=== PATIENT | female | born 2000 | race African-American/Black ===

== ENCOUNTER 2019-01-05 16:52 | Emergency (ER) | payer SELFPAY ==
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
--- OUTSIDE RECORDS SUMMARY | 2019-01-05 16:55 | XMS REPORT ---
:2000 [facility] Address [address] [address] [place] [address] Care Team Providers Name Role Phone UNKNOWN, REFFERING Primary Care Provider Unavailable Problems This patient has no known problems. Allergies, Adverse Reactions, Alerts This patient has no known allergies or adverse reactions. Medications This patient has no known medications. Encounters Start End Encounter Admission Attending Care Care Encounter Date/Time Date/Time Type Type Clinicians Facility Department ID 2017-08-23 2017-08-23 Emergency E [facility] MED [id number] 03:43:00 03:43:00 Results Test Description Test Time Test Comments Text Results Atomic Results Result Comments XR SPINE, THORACIC 2017-08-23 04:42:25 XR SPINE, THORACIC 2VLocation: [id number] 2V hours services provided 08/23/2017 4:42 AMIndication:PainComparison:None availableFindings:Normal thoracic kyphosis and vertebral body alignment.Intervertebral disc spaces and vertebral body heights appear normal. Noacute fracture or dislocation is seen.Impression: No acute fracture or dislocation. CT HEAD OR BRAIN WO 2017-08-23 04:39:21 CT HEAD OR BRAIN WO CONTRAST CONTRASTLocation:[id number] hours services provided 08/23/2017 4:39 AMIndication:TraumaComparison:None availableTechnique: Axial CT images were acquired through the brain withoutcontrast. Sagittal and coronal reformatted images are provided forinterpretation. All CT scans at this facility use dose modulation,iterative reconstruction, and/or weight-based dosing when appropriate toreduce radiation dose to as low as recently possible.Findings:No acute intracranial hemorrhage, mass or area of mass effectis noted.The ventricles and sulci are normal. The extra-axial spaces areclear. Limited views of the paranasal sinuses, mastoids and orbits arenormal.Impression: No acute intracranial abnormality.
--- NOTE | 2019-01-05 18:45 | ER ---
Nurse's Notes [facility] Name: Winnie Nguyen Age: 18 yrs Sex: Female : 2000 Arrival Date: 01/05/2019 Time: 16:56 Bed 17 Private MD: Diagnosis: Streptococcal tonsillitis Presentation: 01/05 16:58 Presenting complaint: Patient states: Sore throat, fever, body aches for 1 day. aj Transition of care: patient was not received from another setting of care. Onset of symptoms was January 04, 2019. Risk Assessment: Do you want to hurt yourself or someone else? Patient reports no desire to harm self or others. Initial Sepsis Screen: Does the patient meet any 2 criteria? No. Patient's initial sepsis screen is negative. Does the patient have a suspected source of infection? No. Patient's initial sepsis screen is negative. Care prior to arrival: None. 16:58 Method Of Arrival: Ambulatory aj 16:58 Acuity: SEVEN 4 aj Triage Assessment: 16:59 General: Appears in no apparent distress. comfortable, Behavior is calm, cooperative, aj appropriate for age. Pain: Complains of pain in left aspect of posterior pharynx and right aspect of posterior pharynx. EENT: Reports pain when swallowing. Neuro: Level of Consciousness is awake, alert, obeys commands, Oriented to person, place, time, situation, Appropriate for age. Respiratory: Airway is patent Respiratory effort is even, unlabored, Respiratory pattern is regular, symmetrical. Derm: Skin is intact, is healthy with good turgor, Skin is pink, warm \T\ dry. normal. 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 - Social history:: Smoking status: Patient/guardian denies using tobacco. - Ebola Screening: : No symptoms or risks identified at this time. - Family history:: not pertinent. - Hospitalizations: : No recent hospitalization is reported. Screenin:30 Abuse screen: Denies threats or abuse. Nutritional screening: No deficits noted. em Tuberculosis screening: No symptoms or risk factors identified. Fall Risk None identified. Assessment: 17:30 General: Appears in no apparent distress. comfortable, Behavior is calm, cooperative, em Smells of Denies fever. Pain: Complains of pain in right aspect of posterior pharynx and left aspect of posterior pharynx. Neuro: Level of Consciousness is awake, alert, obeys commands, Oriented to person, place, time, situation. Cardiovascular: Capillary refill < 3 seconds Patient's skin is warm and dry. Respiratory: Airway is patent Respiratory effort is even, unlabored, Respiratory pattern is regular, symmetrical, Breath sounds are clear bilaterally. GI: Abdomen is flat, Patient currently denies nausea, vomiting. EENT: Throat is reddened bilaterally. Derm: Skin is intact, is healthy with good turgor, Skin is pink, warm \T\ dry. Musculoskeletal: Capillary refill < 3 seconds, Range of motion: intact in all extremities. Vital Signs: 16:59 BP 110 / 67; Pulse 96; Resp 16; Temp 98.4; Pulse Ox 100% on R/A; Weight 58.97 kg; aj Height 5 ft. 4 in. (162.56 cm); 16:59 Body Mass Index 22.31 (58.97 kg, 162.56 cm) aj ED Course: 16:56 Patient arrived in ED. mr 16:59 Triage completed. aj 16:59 Arm band placed on left wrist. Patient placed in an exam room. aj 17:01 Leonel Roach MD is Attending Physician. rn 17:25 Devendra Em LVN is Primary Nurse. em 17:29 Initial lab(s) drawn, by vt, sent to lab. Flu and/or RSV swab sent to lab. Strep swab iw sent to lab. 17:30 Patient has correct armband on for positive identification. Bed in low position. Call em light in reach. Adult w/ patient. 18:49 No provider procedures requiring assistance completed. Patient did not have IV access em during this emergency room visit. Administered Medications: No medications were administered Outcome: 18:44 Discharge ordered by MD. rn 18:49 Discharged to home ambulatory, with family. em 18:49 Condition: good 18:49 Discharge instructions given to patient, family, Instructed on discharge instructions, follow up and referral plans. medication usage, Demonstrated understanding of instructions, follow-up care, medications, Prescriptions given X 1. 18:50 Patient left the ED. em Signatures: Tammie Nuñez RN Lorena Vazquez mr Devendra Em LVN LVN Yanci Ivey, RN RN Leonel Nino MD MD rn
--- NOTE | 2019-01-05 18:45 | EDPHYS ---
Physician Documentation [facility] Name: Winnie Nguyen Age: 18 yrs Sex: Female : 2000 Arrival Date: 01/05/2019 Time: 16:56 Bed 17 Private MD: ED Physician Leonel Roach HPI: 01/05 17:29 This 18 yrs old Black Female presents to ER via Ambulatory with complaints of Sore rn Throat. 17:29 The patient presents with sore throat. The patient describes throat pain as burning, rn raw. Onset: The symptoms/episode began/occurred yesterday. Severity of symptoms: At their worst the symptoms were mild, in the emergency department the symptoms are unchanged. Modifying factors: The symptoms are alleviated by nothing, the symptoms are aggravated by swallowing. The patient has not experienced similar symptoms in the past. 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 . 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 - Social history:: Smoking status: Patient/guardian denies using tobacco. - Ebola Screening: : No symptoms or risks identified at this time. - Family history:: not pertinent. - Hospitalizations: : No recent hospitalization is reported. ROS: 17:29 Constitutional: + fever to 101, + chills Eyes: Negative for injury, pain, redness, and radiology rn, ENT: + sore throat Neck: Negative for injury Cardiovascular: Negative for chest pain, palpitations, and edema, Respiratory: Negative for shortness of breath, cough, wheezing, and pleuritic chest pain, Abdomen/GI: Negative for abdominal pain, nausea, vomiting, diarrhea, and constipation, Back: Negative for injury and pain, : Negative for injury, bleeding, discharge, and swelling, MS/Extremity: Negative for injury and deformity, Skin: Negative for injury, rash, and discoloration, Neuro: + headache Exam: 17:29 Constitutional: This is a well developed, well nourished patient who is awake, alert, rn and in no acute distress. Head/Face: Normocephalic, atraumatic. Eyes: Pupils equal round and reactive to light, extra-ocular motions intact. Lids and lashes normal. Conjunctiva and sclera are non-icteric and not injected. Cornea within normal limits. Periorbital areas with no swelling, redness, or edema. ENT: + tonsillar hypertrophy with exudate, no stridor, normal midline uvula Neck: Trachea midline, + mildly tender right cervical LAD, no meningismus, supple, FROM Respiratory: No increased work of breathing, no retractions or nasal flaring. MS/ Extremity: Pulses equal, no cyanosis. Neuro: Awake and alert, GCS 15, oriented to person, place, time, and situation. Cranial nerves II-XII grossly intact. Motor strength 5/5 in all extremities. Sensory grossly intact. Cerebellar exam normal. Normal gait. Vital Signs: 16:59 BP 110 / 67; Pulse 96; Resp 16; Temp 98.4; Pulse Ox 100% on R/A; Weight 58.97 kg; aj Height 5 ft. 4 in. (162.56 cm); 16:59 Body Mass Index 22.31 (58.97 kg, 162.56 cm) aj MDM: 17:01 Patient medically screened. rn 18:37 Differential diagnosis: group A strep tonsillitis, influenza, mononucleosis. Data rn reviewed: vital signs, nurses notes, lab test result(s), and as a result, I will discharge patient. Counseling: I had a detailed discussion with the patient and/or guardian regarding: the historical points, exam findings, and any diagnostic results supporting the discharge/admit diagnosis, lab results, the need for outpatient follow up, to return to the emergency department if symptoms worsen or persist or if there are any questions or concerns that arise at home. Special discussion: I discussed with the patient/guardian in detail that at this point there is no indication for admission to the hospital. It is understood, however, that if the symptoms persist or worsen the patient needs to return immediately for re-evaluation. 18:44 ED course: Offered patient bicillin, refuses, wants oral abx.. rn 01/05 17:09 Order name: Strep; Complete Time: 18:37 rn 01/05 17:09 Order name: Flu; Complete Time: 18:37 rn 01/05 17:09 Order name: [place] Screen Profile; Complete Time: 18:37 rn Administered Medications: No medications were administered Disposition: 01/05/19 18:44 Discharged to Home. Impression: Streptococcal tonsillitis. - Condition is Stable. - Discharge Instructions: Strep Throat. - Prescriptions for Augmentin 875- 125 mg Oral Tablet - take 1 tablet by ORAL route every 12 hours for 10 days; 20 tablet. - Medication Reconciliation Form, Thank You Letter, Antibiotic Education, Prescription Opioid Use form. - Follow up: Private Physician; When: As needed; Reason: Recheck today's complaints, Re-evaluation by your physician. - Problem is new. - Symptoms have improved. Signatures: Dispatcher [employer] Tammie Brunner RN RN Devendra Siegel, MATRIX BATH ATTENDANT MATRIX BATH ATTENDANT em Leonel Roach MD MD airborne and air delivery specialist: (The following items were deleted from the chart) 18:50 18:44 01/05/2019 18:44 Discharged to Home. Impression: Streptococcal tonsillitis. em Condition is Stable. Forms are Medication Reconciliation Form, Thank You Letter, Antibiotic Education, Prescription Opioid Use. Follow up: Private Physician; When: As needed; Reason: Recheck today's complaints, Re-evaluation by your physician. Problem is new. Symptoms have improved. rn
== END 2019-01-05 18:50 | disposition home or self-care (01) ==
LOC: ER 16:52
DX: J03.00 Acute streptococcal tonsillitis, unspecified (principal)
CPT/HCPCS: 36415; 86308; 87081; 87804; 99283

== ENCOUNTER 2019-05-24 11:10 | Emergency (ER) | payer BC, SELFPAY ==
--- OUTSIDE RECORDS SUMMARY | 2019-05-24 11:12 | XMS REPORT ---
:2000 [facility] Address [address] [place] [address] Care Team Providers Name Role Phone UNKNOWN, REFFERING Primary Care Provider Unavailable Problems This patient has no known problems. Allergies, Adverse Reactions, Alerts This patient has no known allergies or adverse reactions. Medications This patient has no known medications. Encounters Start End Encounter Admission Attending Care Care Encounter Date/Time Date/Time Type Type Clinicians Facility Department ID 2017-08-23 2017-08-23 Emergency E [facility] MED [id number] 03:43:00 03:43:00 Results Test Description Test Time Test Comments Text Results Atomic Results Result Comments XR SPINE, THORACIC 2017-08-23 04:42:25 XR SPINE, THORACIC 2VLocation: [id number] 2V hours services provided 08/23/2017 4:42 AMIndication:PainComparison:None availableFindings:Normal thoracic kyphosis and vertebral body alignment.Intervertebral disc spaces and vertebral body heights appear normal. Noacute fracture or dislocation is seen.Impression: No acute fracture or dislocation. CT HEAD OR BRAIN WO 2017-08-23 04:39:21 CT HEAD OR BRAIN WO CONTRAST CONTRASTLocation:[id number] hours services provided 08/23/2017 4:39 AMIndication:TraumaComparison:None availableTechnique: [...]
[2019-05-24 12:34] LABS: Absolute Lymphocytes (CBC) 2.2 K/uL (0.7-4.9); Basophils % 0.4 % (0-1.3); Hematocrit 37.4 % (36.0-45.0); Lymphocytes % 36.7 % (15.3-44.8); MPV 8.6 fL (7.6-11.3); RBC Red Blood Cell Count 3.94 M/uL (3.86-4.86)
[2019-05-24 12:34] LABS: Urine Blood NEGATIVE (NEG); Urine Glucose NEGATIVE (NEG); Urine Protein TRACE (NEG); Urine pH 6.5 (5.0-7.0)
[2019-05-24 12:52] LABS: ALT/SGPT 21 U/L (12-78); AST/SGOT 14 U/L (15-37); Albumin 3.6 g/dL (3.4-5.0); Alkaline Phosphatase 83 U/L (45-117); BUN Blood Urea Nitrogen 14 mg/dL (7-18); Bicarbonate 28 mmol/L (21-32); Bilirubin Direct 0.2 mg/dL (0-0.2); Bilirubin Total 0.7 mg/dL (0.2-1.0); Glucose Level 91 mg/dL (74-106); Lipase 118 U/L (73-393); Potassium 3.6 mmol/L (3.5-5.1); Protein, Total 7.4 g/dL (6.4-8.2); Sodium Level 141 mmol/L (136-145)
--- NOTE | 2019-05-24 14:28 | RAD REPORT ---
EXAM DESCRIPTION: US - Pelvis Complete - 05/24/2019 2:16 pm COMPARISON: None. TECHNIQUE: Transabdominal pelvic sonography was performed. Patient declined endovaginal examination. FINDINGS: Normal sized, retroflexed uterus is present. No myometrial mass identifiable. No focal end ometrial mass or polyp identifiable. Endometrial stripe is 3-4 mm. In the left adnexa a 4.3 centimeter heterogeneous complex left ovarian or left paraovarian cystic or hypoechoic mass is present. Doppler evaluation shows blood flow in the adjacent ovarian stroma. This mass is partially anechoic. This is believed to be a large cyst with cellular or hemorrhagic debris w ithin the lumen. Endometrioma is a possibility but considered lesser in likelihood. Right ovary was obscured by bowel. No right adnexal mass. IMPRESSION: Approximately 4.3 centimeter left ovarian or paraovarian cystic mass. This is believed t o be a complex or hemorrhagic cyst. Endometrioma is a lesser consideration. No solid mass of the left ovary seen. Nonvisualization of the right ovary due to bowel gas. No right adnexal finding. No uterine abnormality.
--- NOTE | 2019-05-24 14:41 | EDPHYS ---
Physician Documentation [facility] Name: Winnie Nguyen Age: 18 yrs Sex: Female : 2000 Arrival Date: 05/24/2019 Time: 11:14 Bed 17 Private MD: ED Physician Leonel Roach HPI: 05/24 12:12 This 18 yrs old Black Female presents to ER via Ambulatory with complaints of Abdominal jmm Pain. 12:12 The patient presents with abdominal pain in the lower abdomen. Onset: The jmm symptoms/episode began/occurred acutely, 2 week(s) ago. The symptoms radiate to Associated signs and symptoms: Pertinent negatives: nausea, vomiting, and diarrhea, nausea and vomiting, dysuria, fever. The symptoms are described as achy. Modifying factors: The symptoms are alleviated by nothing, the symptoms are aggravated by intercourse. 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 - Social history:: Smoking status: Patient/guardian denies using tobacco. - Ebola Screening: : Patient negative for fever greater than or equal to 101.5 degrees Fahrenheit, and additional compatible Ebola Virus Disease symptoms Patient denies exposure to infectious person Patient denies travel to an Ebola-affected area in the 21 days before illness onset No symptoms or risks identified at this time. ROS: 12:12 Constitutional: Negative for fever, chills, and weight loss, Cardiovascular: Negative jmm for chest pain, palpitations, and edema, Respiratory: Negative for shortness of breath, cough, wheezing, and pleuritic chest pain. 12:12 Abdomen/GI: Positive for abdominal pain. 12:12 : Positive for pelvic pain. 12:12 All other systems are negative. Exam: 12:12 Constitutional: This is a well developed, well nourished patient who is awake, alert, jmm and in no acute distress. Head/Face: atraumatic. Eyes: EOMI, no conjunctival erythema appreciated ENT: Moist Mucus Membranes Neck: Trachea midline, Supple Chest/axilla: Normal chest wall appearance and motion. Cardiovascular: Regular rate and rhythm. No edema appreciated Respiratory: Normal respirations, no respiratory distress appreciated 12:12 Abdomen/GI: Inspection: abdomen appears normal, Bowel sounds: normal, Palpation: soft, mild abdominal tenderness, in the suprapubic area. 12:12 Back: CVA tenderness, is absent. 12:12 Musculoskeletal/extremity: ROM: intact in all extremities. 12:12 Skin: Appearance: Color: normal in color. 12:12 Neuro: Orientation: is normal, Mentation: is normal, Memory: is normal. 12:12 Psych: Behavior/mood is pleasant, cooperative. Vital Signs: 11:36 BP 128 / 89; Pulse 67; Resp 16; Temp 98.7; Pulse Ox 100% on R/A; Weight 61.23 kg; iw Height 5 ft. 5 in. (165.10 cm); Pain 5/10; 12:52 BP 118 / 88; Pulse 76; Resp 16; Temp 98.1(O); Pulse Ox 100% on R/A; mh5 13:49 BP 104 / 83; Pulse 64; Resp 16; Temp 98.5(O); Pulse Ox 100% on R/A; mh5 11:36 Body Mass Index 22.46 (61.23 kg, 165.10 cm) iw MDM: 12:06 Patient medically screened. [facility] 14:38 Data reviewed: vital signs, nurses notes. Counseling: I had a detailed discussion with luana the patient and/or guardian regarding: the historical points, exam findings, and any diagnostic results supporting the discharge/admit diagnosis, lab results, radiology results, the need for outpatient follow up, to return to the emergency department if symptoms worsen or persist or if there are any questions or concerns that arise at home. ED course: Patient is alert and non toxic in appearance in the ED. Patient advised to follow up with ob for reevaluation. Patient otherwise given strict return precautions. patient understood and agrees with the plan of care. . 05/24 12:11 Order name: Basic Metabolic Panel; Complete Time: 12:58 [facility] 05/24 12:11 Order name: CBC with Diff; Complete Time: 12:37 [facility] 05/24 12:11 Order name: Creatinine for Radiology; Complete Time: 12:51 [facility] 05/24 12:11 Order name: Hepatic Function; Complete Time: 12:58 [facility] 05/24 12:11 Order name: Lipase; Complete Time: 12:58 [facility] 05/24 12:11 Order name: IV Saline Lock; Complete Time: 12:38 [facility] 05/24 12:11 Order name: Labs collected and sent; Complete Time: 12:38 [facility] 05/24 12:11 Order name: Urine Dipstick-Ancillary (obtain specimen); Complete Time: 12:38 [facility] 05/24 12:11 Order name: Urine Test (obtain specimen); Complete Time: 12:38 [facility] 05/24 12:16 Order name: Urine Dipstick--Ancillary (enter results); Complete Time: 12:37 05/24 12:16 Order name: Urine --Ancillary (enter results); Complete Time: 12:37 05/24 13:34 Order name: US Pelvis Complete; Complete Time: 14:33 [facility] Administered Medications: No medications were administered Disposition: 15:39 Co-signature as Attending Physician, Leonel Roach MD. rn Disposition: 05/24/19 14:40 Discharged to Home. Impression: Unspecified ovarian cysts. - Condition is Stable. - Discharge Instructions: Ovarian Cyst. - Prescriptions for Keflex 500 mg Oral Capsule - take 1 capsule by ORAL route every 12 hours for 10 days; 20 capsule. Ultracet 37.5- 325 mg Oral Tablet - take 1 tablet by ORAL route every 6 hours - for up to 5 days; do not exceed 8 tablets per day.; 20 tablet. - Medication Reconciliation Form, Thank You Letter, Antibiotic Education, Prescription Opioid Use, Work release form form. - Follow up: Private Physician; When: 2 - 3 days; Reason: Recheck today's complaints, Continuance of care, Re-evaluation by your physician. Signatures: Dispatcher [employer] EDMS Jace Durant PA PA Yanci Rios RN RN Leonel Nino MD MD environmental engineering intern: (The following items were deleted from the chart) 13:51 12:11 Pelvic Exam Setup ordered. [facility] em 15:11 14:40 05/24/2019 14:40 Discharged to Home. Impression: Unspecified ovarian cysts. iw Condition is Stable. Forms are Medication Reconciliation Form, Thank You Letter, Antibiotic Education, Prescription Opioid Use. Follow up: Private Physician; When: 2 - 3 days; Reason: Recheck today's complaints, Continuance of care, Re-evaluation by your physician. luana
--- NOTE | 2019-05-24 14:41 | ER ---
Nurse's Notes [facility] Name: Winnie Nguyen Age: 18 yrs Sex: Female : 2000 Arrival Date: 05/24/2019 Time: 11:14 Bed 17 Private MD: Diagnosis: Unspecified ovarian cysts Presentation: 05/24 11:35 Presenting complaint: Patient states: abd pain X 2 weeks, radiates from back to iw stomach, lost appetite, denies n/v/d, denies urinary s/s. Transition of care: patient was not received from another setting of care. Onset of symptoms was May 05, 2019. Risk Assessment: Do you want to hurt yourself or someone else? Patient reports no desire to harm self or others. Initial Sepsis Screen: Does the patient meet any 2 criteria? No. Patient's initial sepsis screen is negative. Does the patient have a suspected source of infection? No. Patient's initial sepsis screen is negative. Care prior to arrival: None. 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 - Social history:: Smoking status: Patient/guardian denies using tobacco. - Ebola Screening: : Patient negative for fever greater than or equal to 101.5 degrees Fahrenheit, and additional compatible Ebola Virus Disease symptoms Patient denies exposure to infectious person Patient denies travel to an Ebola-affected area in the 21 days before illness onset No symptoms or risks identified at this time. Screenin:20 Abuse screen: Denies threats or abuse. Nutritional screening: No deficits noted. em Tuberculosis screening: No symptoms or risk factors identified. Fall Risk None identified. Assessment: 12:00 General: Appears in no apparent distress. comfortable, Behavior is calm, cooperative, em Denies fever. Pain: Complains of pain in suprapubic area Pain radiates to back Pain currently is 5 out of 10 on a pain scale. Neuro: Level of Consciousness is awake, alert, obeys commands, Oriented to person, place, time, situation, Appropriate for age. Cardiovascular: Capillary refill < 3 seconds Patient's skin is warm and dry. Respiratory: Airway is patent Respiratory effort is even, unlabored, Respiratory pattern is regular, symmetrical. GI: Abdomen is flat, Bowel sounds present X 4 quads. Abd is soft and non tender X 4 quads. Patient currently denies diarrhea, nausea, vomiting. : Denies burning with urination. Derm: Skin is intact, is healthy with good turgor, Skin is pink, warm \T\ dry. Musculoskeletal: Capillary refill < 3 seconds, Range of motion: intact in all extremities. 13:00 Reassessment: Patient appears in no apparent distress at this time. Patient and/or em family updated on plan of care and expected duration. Pain level reassessed. Patient is alert, oriented x 3, equal unlabored respirations, skin warm/dry/pink. 13:42 Reassessment: refused pelvic exam and US, provider notified. em 14:06 Reassessment: US at bedside. em Vital Signs: 11:36 BP 128 / 89; Pulse 67; Resp 16; Temp 98.7; Pulse Ox 100% on R/A; Weight 61.23 kg; iw Height 5 ft. 5 in. (165.10 cm); Pain 5/10; 12:52 BP 118 / 88; Pulse 76; Resp 16; Temp 98.1(O); Pulse Ox 100% on R/A; mh5 13:49 BP 104 / 83; Pulse 64; Resp 16; Temp 98.5(O); Pulse Ox 100% on R/A; mh5 11:36 Body Mass Index 22.46 (61.23 kg, 165.10 cm) iw ED Course: 11:14 Patient arrived in ED. mr 11:20 Patient has correct armband on for positive identification. Bed in low position. Call em light in reach. Side rails up X2. Adult w/ patient. 11:36 Triage completed. iw 11:36 Arm band placed on. iw 11:37 Jace Durant PA is PHCP. [facility] 11:37 Leonel Roach MD is Attending Physician. [facility] 11:38 Devendra Em LVN is Primary Nurse. em 12:00 Urine collected: clean catch specimen, clear. mh5 14:17 US Pelvis Complete In Process Unspecified. EDMS 15:08 No provider procedures requiring assistance completed. IV discontinued, intact, em bleeding controlled, No redness/swelling at site. Pressure dressing applied. Administered Medications: No medications were administered Outcome: 14:40 Discharge ordered by . danielm 15:08 Discharged to home ambulatory. em 15:08 Condition: good 15:08 Discharge instructions given to patient, Instructed on discharge instructions, follow up and referral plans. medication usage, Demonstrated understanding of instructions, follow-up care, medications, Prescriptions given X 2. 15:11 Patient left the ED. iw Signatures: Dispatcher [employer] EDMS Jace Durant PA PA jmm Rivera, Mary mr Devendra Em, COMPUTER CONSULTANT COMPUTER CONSULTANT em Yanci Cooper, ANA LAURA RN iw Kristen Muhammad [facility] Corrections: (The following items were deleted from the chart) 13:50 12:52 BP 118 / 88; Pulse 76bpm; Resp 16bpm; Pulse Ox 100% RA; Temp 68.1F Oral; mh5 mh5
[2019-05-24 15:24] VITALS: O2SAT 100
[2019-05-24 15:26] VITALS: BP 104/83; TEMP 98.5
== END 2019-05-24 15:11 | disposition home or self-care (01) ==
LOC: ER 11:10
DX: N83.202 Unspecified ovarian cyst, left side (principal)
CPT/HCPCS: 36415; 76856; 80048; 80076; 81003; 81025; 83690; 85025; 99283

== ENCOUNTER 2019-06-02 19:41 | Emergency (ER) | payer BC ==
--- OUTSIDE RECORDS SUMMARY | 2019-06-02 19:43 | XMS REPORT ---
:2000 [facility] Address [address] [place] [address] Care Team Providers Name Role Phone UNKNOWN, REFFERING Primary Care Provider Unavailable Problems This patient has no known problems. Allergies, Adverse Reactions, Alerts This patient has no known allergies or adverse reactions. Medications This patient has no known medications. Encounters Start End Encounter Admission Attending Care Care Encounter Date/Time Date/Time Type Type Clinicians Facility Department ID 2019-05-29 2019-05-29 Emergency E [id number] 06:03:00 06:03:00 2017-08-23 2017-08-23 Emergency E [facility] MED [id number] 03:43:00 03:43:00 Results Test Description Test Time Test Comments Text Results Atomic Results Result Comments XR SPINE, THORACIC 2017-08-23 04:42:25 XR SPINE, THORACIC 2VLocation: [id number] 2V hours services provided 08/23/2017 4:42 AMIndication:PainComparison:None availableFindings:Normal thoracic kyphosis and vertebral body alignment.Intervertebral disc spaces and vertebral body heights appear normal. Noacute fracture or dislocation is seen.Impression: No acute fracture or dislocation. CT HEAD OR BRAIN WO 2017-08-23 04:39:21 CT HEAD OR BRAIN WO CONTRAST CONTRASTLocation:[id number] hours services provided 08/23/2017 4:39 AMIndication:TraumaComparison:None availableTechnique: [...]
[2019-06-02 20:35] LABS: Absolute Lymphocytes (CBC) 2.4 K/uL (0.7-4.9); Basophils % 0.4 % (0-1.3); Hematocrit 34.8 % (36.0-45.0); Lymphocytes % 34.2 % (15.3-44.8); MPV 8.7 fL (7.6-11.3); RBC Red Blood Cell Count 3.65 M/uL (3.86-4.86)
[2019-06-02 20:49] LABS: BUN Blood Urea Nitrogen 15 mg/dL (7-18); Bicarbonate 29 mmol/L (21-32); Glucose Level 85 mg/dL (74-106); Potassium 3.6 mmol/L (3.5-5.1); Sodium Level 142 mmol/L (136-145)
[2019-06-02 22:03] LABS: Urine Blood NEGATIVE (NEG); Urine Glucose NEGATIVE (NEG); Urine Protein NEGATIVE (NEG); Urine pH 7.5 (5.0-7.0)
--- NOTE | 2019-06-02 22:15 | ER ---
Nurse's Notes 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 Transition of care: patient was not received from another setting of care. Onset of symptoms was June 01, 2019. Risk Assessment: Do you want to hurt yourself or someone else? Patient reports no desire to harm self or others. Initial Sepsis Screen: Does the patient meet any 2 criteria? No. Patient's initial sepsis screen is negative. Does the patient have a suspected source of infection? No. Patient's initial sepsis screen is negative. Care prior to arrival: None. 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 - Social history:: Smoking status: Patient/guardian denies using tobacco. - Ebola Screening: : No symptoms or risks identified at this time. Screenin:14 Abuse screen: Denies threats or abuse. Nutritional screening: No deficits noted. ea Tuberculosis screening: No symptoms or risk factors identified. Fall Risk None identified. Assessment: 20:14 General: Appears in no apparent distress. Behavior is calm, cooperative, appropriate ea for age. Pain: Complains of pain in pelvis. Neuro: Level of Consciousness is awake, alert, obeys commands, Oriented to person, place, time, situation. Cardiovascular: Patient's skin is warm and dry. Respiratory: Airway is patent Respiratory effort is even, unlabored, Respiratory pattern is regular, symmetrical. Derm: Skin is pink, warm \T\ dry. Musculoskeletal: Circulation, motion, and sensation intact. 21:50 Reassessment: Patient and/or family updated on plan of care and expected duration. Pain ea level reassessed. Patient is alert, oriented x 3, equal unlabored respirations, skin warm/dry/pink. 22:31 Reassessment: Patient and/or family updated on plan of care and expected duration. Pain ea level reassessed. Patient is alert, oriented x 3, equal unlabored respirations, skin warm/dry/pink. Discharge instruction given to patient, verbalized the understanding of instruction . Pt left ED ambulatory tolerating well. Vital Signs: 20:00 BP 111 / 78; Pulse 73; Resp 14 S; Temp 98.3(O); Pulse Ox 99% on R/A; Weight 61.23 kg bb (R); Height 5 ft. 5 in. (165.10 cm) (R); Pain 6/10; 22:00 BP 120 / 68; Pulse 70; Resp 18; Pulse Ox 100% on R/A; ea 20:00 Body Mass Index 22.46 (61.23 kg, 165.10 cm) bb ED Course: 19:44 Patient arrived in ED. ds1 19:46 Nazanin Ramsey FNP-C is PHCP. kb 19:46 Elijah Calderón MD is Attending Physician. kb 20:00 Triage completed. bb 20:00 Arm band placed on Patient placed in an exam room, on a stretcher, on pulse oximetry. bb 20:13 Cyn Bustillos, RN is Primary Nurse. ea 20:14 Patient has correct armband on for positive identification. Bed in low position. Call ea light in reach. 20:33 Initial lab(s) drawn, by me. Missed attempt(s): 20 gauge in right antecubital area. mt 21:29 US Pelvis Complete In Process Unspecified. EDMS 21:43 Ultrasound completed. Patient tolerated well. Notified DEPARTMENT OF NATURAL RESOURCES OFFICER/PA . sg3 22:30 No provider procedures requiring assistance completed. Patient did not have IV access ea during this emergency room visit. Administered Medications: 22:19 CANCELLED (Patient Refused): TORadol - Ketorolac 15 mg IVP once kb Outcome: 22:14 Discharge ordered by . kb 22:30 Discharged to home ambulatory. ea 22:30 Condition: stable 22:30 Discharge instructions given to patient, Instructed on discharge instructions, follow up and referral plans. medication usage, Demonstrated understanding of instructions, follow-up care, medications, Prescriptions given X 1. 22:32 Patient left the ED. ea Signatures: Dispatcher [employer] EDNazanin Keyes, RAMONA-C ENVELOPE SEALER OPERATOR-Nimco Islas ds1 Bia Doshi, RN Tammy Mccormack mt, Elena, RN RN ea Godinez, Yue 3
--- NOTE | 2019-06-02 22:16 | EDPHYS ---
Physician Documentation [facility] Name: Winnie Nguyen Age: 18 yrs Sex: Female : 2000 Arrival Date: 06/02/2019 Time: 19:44 Bed 16 Private MD: ED Physician Elijah Calderón HPI: 06/02 20:19 This 18 yrs old Black Female presents to ER via Ambulatory with complaints of Pelvic kb Pain. 20:20 The patient presents with pelvic pain, that is located in/on the left lower quadrant kb and right lower quadrant. Onset: The symptoms/episode began/occurred yesterday. Modifying factors: The symptoms are alleviated by nothing, the symptoms are aggravated by pressure. Associated signs and symptoms: Pertinent positives: cramping. Severity of symptoms: At their worst the symptoms were moderate, in the emergency department the symptoms are unchanged. The patient has experienced a previous episode. The patient has been recently seen by a physician:. Pt reports she was seen here on 05/24/19 and diagnosed with an ovarian cyst. 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 States pain came back yesterday and today she couldn't take it anymore. . 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 - Social history:: Smoking status: Patient/guardian denies using tobacco. - Ebola Screening: : No symptoms or risks identified at this time. ROS: 20:18 Constitutional: Negative for fever, chills, and weight loss, Neck: Negative for injury, kb pain, and swelling, Cardiovascular: Negative for chest pain, palpitations, and edema, Respiratory: Negative for shortness of breath, cough, wheezing, and pleuritic chest pain, Abdomen/GI: Negative for abdominal pain, nausea, vomiting, diarrhea, and constipation, Back: Negative for injury and pain, MS/Extremity: Negative for injury and deformity, Skin: Negative for injury, rash, and discoloration, Neuro: Negative for headache, weakness, numbness, tingling, and seizure. 20:18 : Positive for pelvic pain. Exam: 20:18 Constitutional: This is a well developed, well nourished patient who is awake, alert, kb and in no acute distress. Head/Face: Normocephalic, atraumatic. Neck: Trachea midline, no thyromegaly or masses palpated, and no cervical lymphadenopathy. Supple, full range of motion without nuchal rigidity, or vertebral point tenderness. No Meningismus. Chest/axilla: Normal chest wall appearance and motion. Nontender with no deformity. No lesions are appreciated. Cardiovascular: Regular rate and rhythm with a normal S1 and S2. No gallops, murmurs, or rubs. Normal PMI, no JVD. No pulse deficits. Respiratory: Lungs have equal breath sounds bilaterally, clear to auscultation and percussion. No rales, rhonchi or wheezes noted. No increased work of breathing, no retractions or nasal flaring. Back: No spinal tenderness. No costovertebral tenderness. Full range of motion. Skin: Warm, dry with normal turgor. Normal color with no rashes, no lesions, and no evidence of cellulitis. MS/ Extremity: Pulses equal, no cyanosis. Neurovascular intact. Full, normal range of motion. Neuro: Awake and alert, GCS 15, oriented to person, place, time, and situation. Cranial nerves II-XII grossly intact. Motor strength 5/5 in all extremities. Sensory grossly intact. Cerebellar exam normal. Normal gait. 20:18 Abdomen/GI: Inspection: abdomen appears normal, Bowel sounds: normal, in all quadrants, Palpation: soft, in all quadrants, moderate abdominal tenderness, in the right lower quadrant and left lower quadrant. Vital Signs: 20:00 BP 111 / 78; Pulse 73; Resp 14 S; Temp 98.3(O); Pulse Ox 99% on R/A; Weight 61.23 kg bb (R); Height 5 ft. 5 in. (165.10 cm) (R); Pain 6/10; 22:00 BP 120 / 68; Pulse 70; Resp 18; Pulse Ox 100% on R/A; ea 20:00 Body Mass Index 22.46 (61.23 kg, 165.10 cm) bb MDM: 20:02 Patient medically screened. kb 20:18 Data reviewed: vital signs, nurses notes. Data interpreted: Pulse oximetry: on room air kb is 99 %. Interpretation: normal. 22:13 Counseling: I had a detailed discussion with the patient and/or guardian regarding: the kb historical points, exam findings, and any diagnostic results supporting the discharge/admit diagnosis, lab results, radiology results, the need for outpatient follow up, an OB/Gyne specialist, to return to the emergency department if symptoms worsen or persist or if there are any questions or concerns that arise at home. 06/02 20:17 Order name: Basic Metabolic Panel; Complete Time: 20:51 kb 06/02 20:17 Order name: CBC with Diff; Complete Time: 20:48 kb 06/02 20:17 Order name: US Pelvis Complete kb 06/02 21:04 Order name: Urine Dipstick--Ancillary (enter results); Complete Time: 22:07 cm6 06/02 21:04 Order name: Urine --Ancillary (enter results); Complete Time: 22:07 cm6 06/02 20:17 Order name: Labs collected and sent; Complete Time: 20:28 kb Administered Medications: 22:19 CANCELLED (Patient Refused): TORadol - Ketorolac 15 mg IVP once kb Disposition: 06/02/19 22:14 Discharged to Home. Impression: Unspecified ovarian cysts. - Condition is Stable. - Discharge Instructions: Ovarian Cyst, [id number]. - Prescriptions for Diclofenac Sodium 75 mg Oral Tablet, Delayed Release (E.C.) - take 1 tablet by ORAL route 2 times per day As needed; 30 tablet. - Medication Reconciliation Form, Thank You Letter, Antibiotic Education, Prescription Opioid Use, Work release form form. - Follow up: Emergency Department; When: As needed; Reason: Worsening of condition. Follow up: Private Physician; When: 2 - 3 days; Reason: Recheck today's complaints, Continuance of care, Re-evaluation by your physician. Addendum: 06/10/2019 07:21 Co-signature as Attending Physician, Elijah Calderón MD I agree with the assessment and c baez plan of care. Signatures: Dispatcher [employer] EDNazanin Keyes, RAMONA-C RAMONA-Elijah Duncan MD MD cha Ballard, Brenda, RN RN bb Bustillos, Cyn, RN RN ea Corrections: (The following items were deleted from the chart) 06/02 22:19 22:08 TORadol - Ketorolac 15 mg IVP once ordered. kb kb 22:32 22:14 06/02/2019 22:14 Discharged to Home. Impression: Unspecified ovarian cysts. ea Condition is Stable. Forms are Medication Reconciliation Form, Thank You Letter, Antibiotic Education, Prescription Opioid Use. Follow up: Emergency Department; When: As needed; Reason: Worsening of condition. Follow up: Private Physician; When: 2 - 3 days; Reason: Recheck today's complaints, Continuance of care, Re-evaluation by your physician. kb
[2019-06-02 23:51] VITALS: TEMP 98.3
[2019-06-02 23:52] VITALS: BP 120/68; O2SAT 100
--- NOTE | 2019-06-03 08:18 | RAD REPORT ---
EXAM DESCRIPTION: US - Pelvis Complete - 06/02/2019 9:27 pm CLINICAL HISTORY: Abdominal pain, pelvic pain Preliminary findings provided at the time of the study. COMPARISON: None. TECHNIQUE: Transabdominal pelvic sonography was performed. FINDINGS: Uterus is 6.7 x 3.4 x 3.9 cm. Endometrium is 6 mm. No endometrial or myometrial focal mass lesions identified. No fluid or blood in the cul-de-sac. Right ovary was obscured by bowel gas. No right adnexal abnormality identified. Left ovary is enlarged by multiple cystic masses. A 4.3 centimeter heterogeneous cystic masses identi fied most likely a hemorrhagic cyst. There is an adjacent 3.6 centimeter cyst with minimal echogenic debris within the lumen. Doppler evaluation shows normal blood flow in the ovarian stroma that drapes the margin of these 2 cystic masses. These are favored to be 2 discrete ovarian cysts rather than a larger more complex cystic mass. No other left adnexal abnormality. IMPRESSION: Two complex left ovarian cystic mass is 4.3 cm and 3.6 cm in size. Blood flow is seen in the left ovarian stroma. The larger more complex cyst is most likely a hemorrhagic cyst. The smaller cyst is only minimally co mplex. Follow-up sonography can be performed in 2-3 months to monitor for involution of the 2 cystic masses. Nonvisualization of the right ovary due to bowel. No right adnexal mass seen. No uterine abnormality seen.
== END 2019-06-02 22:32 | disposition home or self-care (01) ==
LOC: ER 19:41
DX: N83.209 Unspecified ovarian cyst, unspecified side (principal)
CPT/HCPCS: 36415; 76856; 80048; 81003; 81025; 85025; 99284